=== PATIENT | female | born 1980 | race Caucasian/White ===

== ENCOUNTER 2018-04-30 13:29 | Emergency (ER) | payer MEDICAID ==
[~2018-04-30] VITALS: Ht 160 cm; Wt 90.9 kg
[~2018-04-30 13:29] MED LIST: RISP1 PO
[2018-04-30 13:55] VITALS: BP 132/78
== END 2018-04-30 15:10 | disposition left against medical advice (07) ==
LOC: EMS 13:30
DX: F19.10 Other psychoactive substance abuse, uncomplicated (principal); F22 Delusional disorders; J45.909 Unspecified asthma, uncomplicated; F12.90 Cannabis use, unspecified, uncomplicated; F11.90 Opioid use, unspecified, uncomplicated
CPT/HCPCS: 93005